=== PATIENT | male | born 1975 | race Caucasian/White ===

== ENCOUNTER 2020-11-28 13:24 | Outpatient (REF) | payer OTHER, SELFPAY ==
--- NOTE | 2020-11-28 | US_ITS ---
EXAMINATION: US RETROPERITONEAL LIMITED (RENAL ONLY) CLINICAL INFORMATION: Renal cyst. COMPARISON: Ultrasound renals only dated 11/27/2019. Ultrasound abdomen complete dated 10/20/2018. TECHNIQUE: Real-time imaging of the kidneys. FINDINGS: RIGHT KIDNEY: 11.9 x 6.7 x 6.7 cm (SAG x AP x TRV). The kidney is normal in size, contour, and echogenicity. Renal cortical thickness is normal. No calculi or focal parenchymal lesions. No hydronephrosis. LEFT KIDNEY: 13.2 x 7.2 x 6.0 cm (SAG x AP x TRV). The kidney is normal in size, contour, and echogenicity. Renal cortical thickness is normal. No renal calculi or hydronephrosis. There is an anechoic cyst left kidney measuring 7.0 x 7.0 x 6.9 cm in the upper/midpole. US/US renal BI IMPRESSION: Small anechoic cyst upper mid pole left kidney. No echogenic stones seen in either kidney.
== END 2020-11-28 13:25 | disposition home or self-care (01) ==
LOC: HO.US 13:24
PROVIDERS: Visit Provider Urology
DX: N28.1 Cyst of kidney, acquired (principal)
CPT/HCPCS: 76775

== ENCOUNTER 2020-12-23 06:23 | Outpatient (REF) | payer OTHER, SELFPAY | END 2020-12-23 06:24 | disposition home or self-care (01) | LOC: HO.LAB 06:23 | PROVIDERS: Visit Provider Internal Medicine | DX: Z20.822 Contact with and (suspected) exposure to COVID-19 (principal) | CPT/HCPCS: 36415; C9803; U0003; U0005 ==